=== PATIENT | female | born 1995 | race Caucasian/White ===

== ENCOUNTER 2022-11-09 14:25 | Inpatient (IN) | payer MEDICAID ==
[~2022-11-09] VITALS: Ht 162.6 cm; Wt 78.9 kg
[2022-11-09 15:51] LABS: APPEARANCE,URINE CLEAR (CLEAR); BILIRUBIN,URINE NEGATIVE (NEGATIVE); BLOOD, URINE TRACE-I (NEGATIVE); COLOR,URINE YELLOW (YELLOW); LEUKOCYTE ESTERASE ,URINE 2+ (NEGATIVE); NITRITE, URINE NEGATIVE (NEGATIVE); UGLUCOSE NEGATIVE (NEGATIVE)
[2022-11-09 15:52] LABS: BASOPHILS % (AUTO) 0.3 % (0.0-2.0); EOSINOPHILS % (AUTO) 0.5 % (0.0-4.0); HEMATOCRIT 41.2 % (36-48); HEMOGLOBIN 13.9 g/dL (12.0-16.0); LYMPHOCYTES # (AUTO) 1.9 K/uL (2.5-16.5); LYMPHOCYTES % (AUTO) 19.5 % (20.5-51.1); MEAN CORPUSCULAR HEMOGLOBIN 31 pg (27-31); MEAN CORPUSCULAR HGB CONC 34 g/dL (33-37); MEAN CORPUSCULAR VOLUME 90.7 fL (80-94); MONOCYTES # (AUTO) 0.5 K/uL (0.8-1.0); MONOCYTES % (AUTO) 5.6 % (1.7-9.3); NEUTROPHILS % (AUTO) 74.1 % (42.2-75.2); PLATELET COUNT (AUTO) 181 K/uL (140-450); RED BLOOD CELL COUNT(AUTO) 4.54 MIL/uL (4.20-5.40); WHITE BLOOD COUNT (AUTO) 9.5 K/uL (4.8-10.8)
[2022-11-09 16:07] LABS: BARBITURATE, URINE NEGATIVE ng/ml (NEG <=200); BENZODIAZEPINE, URINE POSITIVE ng/mL (NEG <=200)
[2022-11-09 16:08] LABS: CANNABINOID, URINE NEGATIVE ng/mL (NEG <=50); COCAINE, URINE NEGATIVE ng/mL (NEG <=300); OPIATE, URINE NEGATIVE ng/mL (NEG <=2000); PHENCYCLIDINE SCREEN,URINE NEGATIVE ng/mL (NEG <=25)
[2022-11-09 16:11] LABS: ANION GAP 12.7 (8-16); CARBON DIOXIDE 26.4 mmol/L (21-32); CREATININE 0.7 mg/dL (0.6-1.3); POTASSIUM 4.1 mmol/L (3.5-5.1)
[2022-11-09 16:12] LABS: ALBUMIN 2.7 g/dL (3.4-5.0); TOTAL BILIRUBIN 0.3 mg/dL (0.0-1.0)
[2022-11-09 16:46] VITALS: BP 130/79
[2022-11-09] MEDS ORDERED: PNV91TAB8 PO (18:56)
[2022-11-09] MEDS ORDERED: OXYTOCIN 20 UNITS in LACTATED RINGERS 1,000 ML IV SCH (19:00)
[2022-11-09] MEDS ORDERED: ONDANSETRON 4 MG/2 ML VIAL IVP PRN (19:00)
[2022-11-09] MEDS ORDERED: MORPHINE SULFATE 5 MG/ML VIAL IVP PRN (19:00)
[2022-11-09] MEDS ORDERED: cefTRIAXone 1,000 MG VIAL ONE (19:24)
[2022-11-09] MEDS: NACL 0.9% 1,000 ML IV SCH (19:45)
[2022-11-10] MEDS: NACL 0.9% 1,000 ML IV SCH (03:44)
[2022-11-10] MEDS ORDERED: MISOPROSTOL 25 MCG TAB VG SCH ×2 (09:00)
[2022-11-10] MEDS: MISOPROSTOL 25 MCG TAB VG SCH ×2 (09:12→15:21)
--- NOTE | 2022-11-10 10:36 | NUR ---
PATIENT HAS BEEN SCREENED AND CATEGORIZED LOW NUTRITION RISK. PATIENT WILL BE SEEN WITHIN 7 DAYS OF ADMISSION. 11/16/22 REVIEWED BY CARMINA NIELS[address]
[2022-11-10] MEDS: LACTATED RINGERS 1,000 ML IV SCH ×2 (11:30→20:05)
[2022-11-10] MEDS ORDERED: MORPHINE SULFATE 10 MG/ML VIAL ONE (20:36)
[2022-11-10 20:45] VITALS: BP 114/70
[2022-11-10 22:04] LABS: PROTHROMBIN TIME 8.8 secs (10.8-13.4)
[2022-11-10] MEDS ORDERED: ROPIVACAINE 0.2%/NS PREMIX 200 ML EPI ONE (23:45)
[2022-11-11] MEDS ORDERED: ROPIVACAINE 0.2%/NS PREMIX 100 ML EPI SCH (00:30)
[2022-11-11] MEDS: LACTATED RINGERS 1,000 ML IV SCH ×3 (00:34→15:09)
[2022-11-11] MEDS ORDERED: OXYTOCIN 20 UNITS/LR PREMIX 1,000 ML IV ONE (01:53)
[2022-11-11] MEDS ORDERED: ROPIVACAINE 0.2%/NS PREMIX 200 ML EPI ONE (07:48)
[2022-11-11] MEDS ORDERED: ROPIVACAINE 0.2%/NS PREMIX 200 ML EPI SCH (07:50)
[2022-11-11] MEDS ORDERED: HYDROcodone/APAP 5/325 MG 1 TAB TAB PO PRN (19:25)
[2022-11-11] MEDS ORDERED: IBUPROFEN 800 MG TAB PO PRN (19:25)
[2022-11-11] MEDS ORDERED: METHYLERGONOVINE 0.2 MG/ML AMP IM PRN (19:25)
[2022-11-11] MEDS ORDERED: BENZOCAINE/MENTHOL 20%-0.5% 60 GM CAN TP PRN (19:25)
[2022-11-11] MEDS ORDERED: MEASLES, MUMPS, AND RUBELLA 1 VIAL SQVAC ONE (19:25)
[2022-11-11] MEDS ORDERED: TEMAZEPAM 15 MG CAP PO PRN (19:25)
[2022-11-11] MEDS ORDERED: OXYTOCIN 10 UNITS/ML VIAL IM PRN (19:25)
[2022-11-11] MEDS ORDERED: METHYLERGONOVINE 0.2 MG TAB PO PRN (19:25)
[2022-11-11] MEDS ORDERED: DOCUSATE SOD/SENNA 50/8.6 MG 1 TAB ONE (19:39)
[2022-11-11] MEDS ORDERED: oxyCODONE/APAP 5/325 MG 1 TAB TAB ONE (19:42)
[2022-11-11] MEDS ORDERED: DOCUSATE SOD/SENNA 50/8.6 MG 1 TAB PO SCH (21:00)
[2022-11-11] MEDS: oxyCODONE/APAP 5/325 MG 1 TAB TAB PO PRN (21:22)
[2022-11-11] MEDS: bisacodyL 5 MG TABEC PO SCH (23:44)
[2022-11-12] MEDS: oxyCODONE/APAP 5/325 MG 1 TAB TAB PO PRN ×2 (03:05→23:50)
[2022-11-12 08:04] LABS: HEMATOCRIT 41.4 % (36-48); HEMOGLOBIN 13.3 g/dL (12.0-16.0)
[2022-11-12] MEDS ORDERED: DOCUSATE SOD/SENNA 50/8.6 MG 1 TAB PO SCH (21:00)
[2022-11-12] MEDS: bisacodyL 5 MG TABEC PO SCH (21:19)
== END 2022-11-13 15:30 | disposition home or self-care (01) | DRG 560 ==
LOC: MLD 14:25 → OBSVTOIN 18:55 → MLD 19:16 → MFCC 11-11 21:18
PROVIDERS: ADMIT Obstetrics & Gynecology; ATTEND Obstetrics & Gynecology
PROC: 10D07Z6 Extraction of Products of Conception, Vacuum, Via Natural or Artificial Opening (ICD-10-PCS; principal; 2022-11-11)
PROC: 0HQ9XZZ Repair Perineum Skin, External Approach (ICD-10-PCS; 2022-11-11)
PROC: 3E0R3BZ Introduction of Anesthetic Agent into Spinal Canal, Percutaneous Approach (ICD-10-PCS; 2022-11-11)
PROC: 00HU33Z Insertion of Infusion Device into Spinal Canal, Percutaneous Approach (ICD-10-PCS; 2022-11-11)
PROC: 3E0DXGC Introduction of Other Therapeutic Substance into Mouth and Pharynx, External Approach (ICD-10-PCS; 2022-11-11)
DX: O36.8130 Decreased fetal movements, third trimester, not applicable or unspecified (principal); Z37.0 Single live birth; O99.324 Drug use complicating childbirth; O76 Abnormality in fetal heart rate and rhythm complicating labor and delivery; F15.90 Other stimulant use, unspecified, uncomplicated; Z3A.38 38 weeks gestation of pregnancy; Z20.822 Contact with and (suspected) exposure to COVID-19; O77.0 Labor and delivery complicated by meconium in amniotic fluid; O70.0 First degree perineal laceration during delivery
CPT/HCPCS: 36415; 51702; 59200; 76805; 76819; 80053; 80305; 81001; 85018; 85025; 85610; 85730; 86592; 86762; 86886; 86900; 86901; 87086; 87340; 87491; 87653-90; J0696; J2270; J2405; J2590; J2795; J7030; J7060; J7120; Q0092